=== PATIENT | female | born 1955 | race African-American/Black ===

== ENCOUNTER 2016-11-16 12:27 | Emergency (ER) | payer MEDICARE, MEDICAID ==
[~2016-11-16] VITALS: Ht 170.2 cm; Wt 83.0 kg
[2016-11-16 12:32] VITALS: BP 205/66; PULSE 65
--- NOTE | 2016-11-16 12:32 | ED.REPORT ---
HPI-General Illness Date of Service Nov 16, 2016 ED Provider: Roosevelt Palma MD The patient is a 61 year old female with a history of HTN, DM, CHF, and end- stage renal disease on hemodialysis presenting to the ED complaining of lightheadedness onset yesterday after she received dialysis. The patient admits to nausea, headache, vomiting with the most recent episode being this morning, dizziness, and hearing loss bilaterally. The patient denies fever, abdominal pain, diarrhea, blurry vision, photophobia, difficulty swallowing or breathing, chest pain, or neck pain. She was last dialyzed yesterday and has an appointment tomorrow. The son was in the room and helped report some of the information. Nursing Notes Stated Complaint: NAUSEA Nursing Notes Reviewed: Yes Allergies: Coded Allergies: No Known Allergies (Unverified Allergy, Unknown, 11/16/16) Scheduled PRN Acetic Acid (Acetic Acid) 15 Ml Solution 15 ML AFFECT_EAR QID PRN PRN cerumen impaction Ondansetron ODT (Zofran ODT) 4 Mg Tablet 4 MG PO Q4H PRN PRN For Nausea General Time Seen by MD: 12:28 Chief Complaint Other (Lightheadedness) Hx Obtained From: Patient, Son Arrived By: Ambulance Sudden in Onset?: Yes Onset Occurred: Yesterday Associated with: Reports: Dizziness, Headache, Nausea, Vomiting, Denies: Chest pain, Difficulty breathing, Difficulty swallowing, Fever, Neck pain, Vision change Pertinent Negative: Pt denies other symptoms Recent Healthcare: Recent doctor visit Past Medical History Medications include: Atrovent Renvela Furosemide Minoxidil Amlodipine Carvedilol Metoclopramide Famotidine Pantoprazole Shawanda-Kaylyn Sensipar Pravastatin Past Medical History HTN DM End-stage renal disease on hemodialysis M/W/F in [place], [place] "oversized enlarged heart" Conjestive heart failure "liver problem" Past Surgical History none reported Smoking History Unknown if Ever Smoker Social History Other Social History: Good social support Review of Systems Full Review of Systems Constitutional: Denies: Fever Eyes: Denies: Blurred bilateral, Photophobia Ears / Nose / Throat: Reports: Hearing loss bilateral Respiratory: Denies: Shortness of breath Cardiovascular: Denies: Chest pain GI: Reports: Nausea, Vomiting, Denies: Abdominal pain, Diarrhea, Dysphagia Musculoskeletal: Denies: Neck pain Neurologic: Reports: Dizziness, Headache, Lightheaded Complete sys rev & neg: except as marked. Physical Exam Vital Signs Vital Signs Date Time Temp Pulse Resp B/P Pulse Ox O2 Delivery O2 Flow Rate FiO2 11/16/16 15:10 36.9 59 13 185/73 100 Room Air 11/16/16 13:46 36.9 63 13 174/60 100 Room Air 11/16/16 12:32 36.9 65 205/66 Room Air Initial VS: Reviewed, Vital signs normal Neck: Supple Skin: Warm, Dry General/Constitutional: Awake, Alert, No acute distress Head / Eyes: Atraumatic, Normocephalic, No photophobia ENT: Airway patent Bilat cerumen impactions Respiratory / Chest: Atraumatic, Breath sounds NL, Breath sounds = bilat, No respiratory distress Cardiovascular: Heart rate NL Left upper sternal holosystolic murmur Abdomen: Atraumatic, Soft, Non-tender Lower Extremity / Pelvis / MS: Atraumatic, No edema Neurologic: Oriented X3, CN II - XII intact Interpretation & Diagnostics Lab Results Interpretation Result Diagram: 11/16/16 1310 11/16/16 1310 Test 11/16/16 13:10 White Blood Count 5.4th/mm3 (3.8-10.1) Red Blood Count 3.38mil/mm3 (3.90-5.20) Hemoglobin 11.0g/dL (12.0-15.6) Hematocrit 31.7% (35.0-46.0) Mean Corpuscular Volume 93.8fL (81-100) Mean Corpuscular Hemoglobin 32.5pg (27.0-35.0) Mean Corpuscular Hemoglobin Concent 34.7% (32.0-37.0) Red Cell Distribution Width 15.0% (12.3-15.4) Platelet Count 77bil/L (150-400) Neutrophils (%) (Auto) 74.4% (40-74) Lymphocytes (%) (Auto) 17.6% (14-46) Monocytes (%) (Auto) 6.9% (4-12) Eosinophils (%) (Auto) 0.7% (0-5) Basophils (%) (Auto) 0.2% (0-3) Sodium Level 133mEq/L (134-144) Potassium Level 4.4mEq/L (3.5-5.2) Chloride Level 90mEq/L (97-108) Carbon Dioxide Level 25mmol/L (18-29) Blood Urea Nitrogen 40mg/dL (8-27) Creatinine 7.95mg/dL (0.57-1.00) Estimat Glomerular Filtration Rate 7mL/min (>59) Glucose Level 155mg/dL (60-99) Calcium Level 8.7mg/dL (8.5-10.1) Magnesium Level 2.0mg/dL (1.6-2.6) Total Bilirubin 0.5mg/dL (0.0-1.2) Aspartate Amino Transf (AST/SGOT) 19U/L (0-50) Alanine Aminotransferase (ALT/SGPT) 12U/L (0-32) Alkaline Phosphatase 131U/L (25-165) Total Protein 8.0g/dL (6.4-8.4) Albumin 4.0g/dL (3.4-5.0) Lipase 61U/L (13-60) [place] Top Tube Received (Received) Re-Eval/Medical Decision Med Decision/Clinical Course 61-year-old female history of end-stage renal disease on dialysis presenting complaining of headache and lightheadedness. This resolved with Tylenol. The pressure was significantly elevated 200 systolic which improved to 160 heart intervention. She refused any blood pressure medications. She also had a bilateral cerumen impaction which was disimpacted by the nurse. She was given acetic acid otic to use at home. She will follow up with her dialysis tomorrow. Return precautions given. Time of Eval: 13:53 Re-Evaluation/Progress Note: Rechecked patient who would like to go home. Discussed plan to discharge. Patient understands and agrees with plan. All questions addressed at this time. Counseled Regarding: Diagnosis, Lab results, Need for follow-up, When/why to return to ED Discharge & Departure Primary Impression: Headache Headache type: unspecified Headache chronicity pattern: unspecified pattern Intractability: not intractable Qualified Code: R51 - Headache Additional Impressions: Lightheadedness Hypertension Hypertension type: unspecified secondary hypertension Qualified Code: I15.9 - Secondary hypertension, unspecified Cerumen impaction Laterality: unspecified laterality Qualified Code: H61.20 - Impacted cerumen , unspecified ear Disposition: Home Discharge Condition All VS Reviewed: Yes Condition: Stable Patient Instructions: Acute Headache (ED), Hypertension (ED) Additional Instructions: Thank you for entrusting us with your care. Your symptoms have resolved. You declined blood pressure medications at this time. I think your symptoms may be related to your blood pressure. It is reassuring that they have resolved. Your labs did not show any acute causes for your symptoms. Follow up with your dialysis team tomorrow for dialysis. Follow up with your primary doctor in the next 1-2 days for re-evaluation. Take Zofran as needed for nausea and vomiting. Return to the emergency department for worsening headache, elevated blood pressure, vision changes, trouble speaking or swallowing, neck pain, weakness, numbness, fever, vomiting, abdominal pain, or any other new or concerning symptoms. Referrals: Jarett Fernandez MD (PCP) Annemarie Attestation Portions of this note were transcribed by Marily David and Charles Arreola. I, Dr. Palma personally performed the history, physical exam and medical decision-making; I reviewed and confirmed the accuracy of the information in the transcribed note. Signed by: Annemarie Grigsby, 11/16/16 copies to: Jarett Fernandez MD, Ben M MD Nov 16, 2016 12:31 Nov 16, 2016 12:47 MARILY DAVID Nov 16, 2016 14:00
[2016-11-16] MEDS ORDERED: Labetalol 5 mg/mL 20 mL Inj IVPUSH ONE ×2 (12:45→13:45)
[2016-11-16] MEDS ORDERED: Ondansetron 2 mg/mL 2 mL Inj IVPUSH PRN (12:45)
[2016-11-16 13:26] LABS: BASOPHILS % (AUTO) 0.2 % (0-3); EOSINOPHILS % (AUTO) 0.7 % (0-5); MONOCYTES % (AUTO) 6.9 % (4-12); Mean Corpuscular Hemoglobin 32.5 pg (27.0-35.0); Mean Corpuscular Volume 93.8 fL (81-100); NEUTROPHILS % (AUTO) 74.4 % (40-74); Platelet Count 77 bil/L (150-400)
[2016-11-16 13:46] VITALS: BP 174/60; PULSE 63; RESP 13; O2SAT 100
[2016-11-16] MEDS ORDERED: ONDA4TAB9 PO (13:54)
[2016-11-16] MEDS ORDERED: ACET15SO6 AFFECT_EAR (14:23)
[2016-11-16 15:10] VITALS: BP 185/73; PULSE 59; RESP 13; O2SAT 100
== END 2016-11-16 15:12 | disposition home or self-care (01) ==
LOC: SED 12:27
DX: R51 Headache (principal); R42 Dizziness and giddiness; I15.9 Secondary hypertension, unspecified; H61.23 Impacted cerumen, bilateral; R11.2 Nausea with vomiting, unspecified; H91.93 Unspecified hearing loss, bilateral; I13.2 Hypertensive heart and chronic kidney disease with heart failure and with stage 5 chronic kidney disease, or end stage renal disease; E11.59 Type 2 diabetes mellitus with other circulatory complications; I50.9 Heart failure, unspecified; E11.22 Type 2 diabetes mellitus with diabetic chronic kidney disease; N18.6 End stage renal disease; Z99.2 Dependence on renal dialysis
CPT/HCPCS: 36415; 80053; 83690; 83735; 85025; 96374; 99284; J2405